=== PATIENT | male | born 1965 | race Caucasian/White ===

== ENCOUNTER 2020-02-23 12:29 | Outpatient (CLI) | payer OTHER, SELFPAY ==
--- NOTE | ~2020-02-23 | XR_ITS ---
EXAMINATION: XR lg joint inject/asp w image DATE: 02/23/2020 13:24 INDICATION: Unilateral primary osteoarthritis of the left hip presenting with left hip pain TECHNIQUE: A time-out was performed to verify the patient's name, date of , and procedure to b e performed. The procedure including the risks, benefits, and alternatives was discussed with the pat ient. Risks discussed included bleeding and infection. The patient understood the risks and agreed to proceed. The skin overlying the left hip joint was prepped and draped in usual sterile fashion. An esthetic was administered with 1% lidocaine subcutaneously. A 22 G needle was advanced under fluoros copic guidance into the joint. Injection of 0.6 mL of Omnipaque 240 confirmed intra-articular positi on of the needle. Subsequently, injectate consisting of 7 mL of a 5:2 mixture of 1% lidocaine, 10 mg /mL Kenalog for a total dosage of 20 mg Kenalog was instilled. Washout of contrast was seen confirmin g intra-articular administration. The needle was removed and the entry site was cleaned and dressed. There were no immediate complications. Fluoroscopy exposure time was 0.1 minutes. The total number o f images was 2. FINDINGS: Real-time fluoroscopy demonstrates the needle in the left hip joint. Patient's pain prior t o procedure:4/10. Patient's pain following the procedure: 0/10. IMPRESSION: 1. Left hip injection of local anesthetic and steroid with decrease in the patient's presenting pain. Reviewed, dictated and finalized at location A. IMPRESSION: 1. Left hip injection of local anesthetic and steroid with decrease in the dl ent's presenting pain.
== END 2020-02-23 12:30 | disposition home or self-care (01) ==
PROVIDERS: PCP Family Medicine Sports Medicine; Visit Provider Orthopaedic Surgery
DX: M16.12 Unilateral primary osteoarthritis, left hip (principal)
CPT/HCPCS: 20610; 77002; J3301; Q9966

== ENCOUNTER → 2022-06-06 08:53 | Outpatient (CLI) | payer OTHER, SELFPAY ==
--- NOTE | ~2022-06-06 | MR_ITS ---
EXAMINATION: MR hip LT wo con DATE: 06/06/2022 09:46 INDICATION: Left hip pain. TECHNIQUE: Magnetic resonance imaging (MRI) of the left hip was performed without intravenous contras t. COMPARISON: Pelvis and left hip radiographs 05/24/2022 FINDINGS: Bones/cartilage: There is lumbar levocurvature and severe lower lumbar spondylosis. No fracture. There is moderate rig ht hip osteoarthritis. There is severe left hip osteoarthritis including full-thickness cartilage los s involving acetabulum and femoral head superiorly. Labrum: There is a tear of the left acetabular labrum. Fluid: There is a small right hip joint effusion. There is a moderate-sized left hip joint effusion. There i s mild bilateral trochanteric bursitis. Soft tissues: The iliopsoas tendons are normal. The gluteus minimus and gluteus medius tendons are normal. There is mild tendinopathy of right hamstring origin. There is a partial tear of left hamstring origin. There is diverticulosis of the colon without evidence of diverticulitis. IMPRESSION: 1. Severe left hip osteoarthritis and moderate right hip osteoarthritis. 2. Moderate-sized left and small right hip joint effusions. Reviewed, dictated and finalized at location B.
== END ==
PROVIDERS: PCP Family Medicine Sports Medicine; Visit Provider Nurse Practitioner
DX: M25.552 Pain in left hip (principal); M16.0 Bilateral primary osteoarthritis of hip; M25.452 Effusion, left hip; M25.451 Effusion, right hip
CPT/HCPCS: 73721

== ENCOUNTER 2023-01-08 07:48 | Outpatient (CLI) | payer OTHER, SELFPAY ==
--- NOTE | 2023-01-08 08:34 | ECG_ITS ---
Measurements Intervals [place] Rate: 60 P: 5 OK: 192 QRS: -30 QRSD: 99 T: 22 QT: 407 QTc: 407 Interpretive Statements SINUS RHYTHM VOLTAGE CRITERIA FOR LVH POOR R WAVE PROGRESSION, ANTERIOR LEADS BASELINE ARTIFACT- I, II, III, AVR, AVL, AVF, V1-V6 BORDERLINE ECG NO PREVIOUS ECG AVAILABLE FOR COMPARISON Electronically Signed On 01-08-2023 9:36:38 CDT by Nicholas Padilla D.O.
[2023-01-08 09:06] LABS: Basophils Percent Auto 0.4 % (0.2-1.2); Eosinophils Absolute Auto 0.1 K/mm3 (0-0.3); Eosinophils Percent Auto 1.2 % (0-4.4); Hematocrit 45.4 % (42.0-52.0); Hemoglobin 15.4 g/dL (14.0-18.0); Immature Granulocyte Absolute 0.05 K/mm3 (0.00-0.031); Immature Granulocyte Percent A 0.5 % (0-0.5); Lymphocytes Absolute Auto 1.38 K/mm3 (0.9-3.2); Lymphocytes Percent Auto 14.7 % (18.3-44.2); Mean Corpuscular HGB Conc 33.9 g/dl (32-36); Mean Corpuscular Volume 91.5 fl (80-100); Mean Platelet Volume 9.6 fl (7.4-10.4); Monocytes Percent Auto 10.1 % (2.6-8.5); Neutrophils Absolute Auto 6.9 K/mm3 (1.3-6.7); Neutrophils Percent Auto 73.1 % (45.5-73.1); Platelet Count Result 231 k/mm3 (150-375); Red Blood Count 4.96 M/mm3 (4.6-6.20); Red Cell Distribution Width 12.2 % (11.5-14.5); White Blood Count 9.4 K/mm3 (4.5-10.0)
[2023-01-08 09:21] LABS: Albumin Level 4.5 g/dL (3.5-5.1); Estimated Glomerular Filt Rate > 60; Glucose 106 mg/dL (65-110)
[2023-01-08 09:24] LABS: Urine Cotinine NEGATIVE
[2023-01-08 10:26] LABS: Hemoglobin A1C 5.5 % (<5.7)
== END 2023-01-08 07:49 | disposition home or self-care (01) ==
PROVIDERS: PCP Family Medicine Sports Medicine; Visit Provider Orthopaedic Surgery
DX: M16.12 Unilateral primary osteoarthritis, left hip (principal); Z01.818 Encounter for other preprocedural examination
CPT/HCPCS: 80307; 82040; 82565; 82947; 83036; 85025; 87081; 93005

== ENCOUNTER 2023-01-29 00:34 | Day surgery (SDC) | payer OTHER, SELFPAY ==
--- NOTE | 2023-01-08 07:47 | PC.NURSE ---
PRE-OP INSTRUCTIONS, PLEASE READ CAREFULLY Report to the Outpatient Waiting Room, entrance under the green pavilion located off [facility], at time _0600_ on date _01/29/23_. Planned Procedure Time: _0730_. PACK A SMALL OVERNIGHT BAG AND LEAVE IN THE CAR ALONG WITH YOUR WALKER Time changes happen often and if your time is changed the preop area will call you the afternoon before. - You and your visitor will be asked to self-screen and do not enter if you have any COVID symptoms. - A mask is optional within the hospital at this time. -VISITING HOURS 8AM-8PM Patients may have clear liquids (water, carbonated beverages, clear teas, apple juice) until 3 hours prior to surgery (0430 AM) with a maximum of 20 ounces. - No food from midnight until time of surgery Take the following medications with a SIP of water the morning of surgery: _N/A_ DO NOT STOP ANY OF YOUR OTHER PRESCRIPTION MEDICATIONS PRIOR TO SURGERY ?EXCEPT THE FOLLOWING Medications to discontinue per physician __N/A__, Date to take last dose Please no make-up, nail monegasque, hairspray, perfume, deodorant, or body powder the day of surgery. No jewelry (including any body piercings) or valuables the day of surgery, leave them at home. Please take a shower or bath the night before, or the morning of, surgery with an antibacterial soap. Wear comfortable, loose fitting clothing. - Jewelry must be removed prior to entering the operating room. Rings and piercings that are not removed may be cut off. - The hospital will not accept responsibility for valuables. - Please leave all valuables, including medications, at home the day of surgery. If you are going home after surgery, a licensed delivery driver assistant must drive you home. - NO public transportation without another adult if you receive anesthesia. - We recommend that an adult stay with you for 24 hours following discharge. - We also recommend that you do not drive, make important decision, drink alcoholic beverages, or take any drugs that were not prescribed by your health care provider for at least 24 hours after your discharge time. Follow any additional instructions given to you from your surgeon. If you or anyone in your household have experienced Covid symptoms in the past week, please notify your surgeon or the nurse liaison at the phone number below for possible testing. Instructions given to _GRZEGORZ_and asked if any additional questions and then verbalized understanding. Patient advised to call surgeon office or pre surgery nurse liaison [phone] if any additional questions.
[2023-01-08 08:02] VITALS: BP 166/80; PULSE 66; RESP 20; TEMP 36.6; O2SAT 100; BMI 36.1
[2023-01-29] VITALS (13 sets, daily range): BP systolic 111–177; BP diastolic 59–96; PULSE 61–84; RESP 11–20; TEMP 36.2–37.3; O2SAT 94–99
--- NOTE | ~2023-01-29 | XR_ITS ---
EXAMINATION: XR hip LT min 2V DATE: 01/29/2023 11:32 INDICATION: Left hip arthroplasty TECHNIQUE: 2 views left hip FINDINGS: There is a left total hip arthroplasty in expected position. Subcutaneous gas with soft ti ssue swelling are consistent with recent surgery. IMPRESSION: 1. Recent left total hip arthroplasty. Reviewed, dictated and finalized at location []
--- NOTE | ~2023-01-29 | XR_ITS ---
EXAMINATION: XR surgery orthopedic DATE: 01/29/2023 7:30 CDT INDICATION: LEFT ANTERIOR APPROACH HIP . TECHNIQUE: 2 fluoroscopic images of the left hip were obtained during left anterior approach hip repl acement performed by the surgeon. I was not present in the operating room. Fluoroscopy exposure time was 19.8 seconds. Air Kerma 6.35 mGy. DAP 0.44246 mGym2. COMPARISON: None FINDINGS: Left hip arthroplasty components, in near-anatomic alignment. IMPRESSION: Fluoroscopic documentation of left anterior approach hip arthroplasty. Please refer to the operative note for complete procedural details . Reviewed, dictated and finalized at location K. IMPRESSION: Fluoroscopic documentation of left anterior approach hip arthroplasty. Please r efer to the operative note for complete procedural details .
--- NOTE | 2023-01-29 06:29 | WPDANESEPPF ---
Anes - Initial Pre Proc Eval Procedure: Operation Date: 01/29/23 07:30 Proposed Procedures p Left Total Hip Arthroplasty, Anterior Approach - Deonte Suggs MD Date/Time: 01/29/23 06:29 Surgeon: Deonte Suggs MD Pre Op Diagnosis: OA left hip Patient Data Age: 57 Gender: M Height: 1.83 m Weight: 120.7 kg Last Vital Signs Temp 36.5 C 01/29/23 06:15 Pulse 69 01/29/23 06:15 Resp 18 01/29/23 06:15 BP 177/87 H 01/29/23 06:15 Pulse Ox 97 01/29/23 06:15 O2 Del Method Room Air 01/29/23 06:15 Allergies Allergy/AdvReac Type Severity Reaction Status Date / Time No Known Allergies Allergy Verified 01/29/23 06:40 Home Medications Medication Instructions Recorded Confirmed Type indomethacin 50 mg capsule 50 mg PO TID PRN 01/18/23 01/18/23 History mecobalamin (vitamin B12) 10,000 mcg IM .q 5days 01/18/23 01/18/23 History mcg solution for injection rivaroxaban 10 mg tablet (Xarelto) 10 mg PO DAILY PE prophylaxis s/p 01/18/23 01/18/23 Rx surgery #14 tabs Patient hx anesthesia problems: none Family hx anesthesia problems: none Results Review: All pre-operative results and documents have been reviewed as part of the pre-operative evaluation. [facility] Past Medical History Medical History Arthritis, lumbar spine History of gout Osteoarthritis of left hip Surgical History Surgical History History of appendectomy History of cholecystectomy History of nasal surgery History of tonsillectomy Family History Family History Father Heart disease Social History Social History Smoking status: Never smoker Second hand tobacco smoke exposure: No Additional smoking assessment comments: PT DENIES ALL FORMS OF TOBACCO USE Alcohol intake: current Drinks per week: 10 Alcohol use details: Moderate Substance use: never Substance use type: does not use Lack of Transportation: No Lack of Food: Never True Current Housing: I Have Housing Concerned About Future Housing: No Difficulty Paying Gas/Electric Bills: No Difficulty Paying for Meds: No Currently Unemployed: No Education: High School Diploma/GED Difficulty w/ Childcare or Family Care: No Living arrangements: with family Additional living arrangements comments: -[place] Occupation/Education: occupation Additional occupation/education comments: Self Employed- [employer] Spiritual care concerns: No Anes - Eval Final PreProcedure Day of Procedure 01/29/23 06:29 Patient weight: obese Heart: regular rate and rhythm Lungs: clear to auscultation Airway: Mallampati scale class II Neurological: alert and oriented Last oral intake: >/= 8 hours ASA classification: II Emergent: no Anesthetic plan: proceed Anesthesia type and monitoring: general ETT and standard monitoring Results Review: All pre-operative results and documents have been reviewed as part of the pre-operative evaluation. Informed Consent: The patient's anesthetic plan and its attendant risks and benefits were discussed with the patient/family/POA. Questions were solicited and answers provided to the satisfaction of the patient/family/POA.
[2023-01-29] MEDS: LACTATED RINGERS 1,000 ML 30 ML IV CONT ×2 (06:30→11:15)
[2023-01-29] MEDS: TRANEXAMIC ACID 1,000MG/ISO100 1,000 MG/100 ML BAG 200 MG IVPB (06:30)
[2023-01-29] MEDS: ACETAMINOPHEN 500 MG TABLET 1000 MG PO (06:38)
--- NOTE | 2023-01-29 07:09 | WPDHPUPDATE1 ---
History and Physical Update Update Date/Time: 01/29/23 07:09 History and Physical has been reviewed, including an updated exam of the patient. There are NO changes in the patient's condition. Risks, benefits, and alternatives have been discussed and questions answered. Patient agrees to proceed with procedure.
[2023-01-29] MEDS: ceFAZolin 3 GM/D5W 100 ML 100 ML IVPB (07:38)
--- NOTE | 2023-01-29 11:12 | P.OP_ITS ---
Procedure Note - Detailed Date of Procedure 01/29/23 Pre-op Diagnosis OA left hip Post-op Diagnosis Same Procedure Performed left total hip replacement - anterior approach Surgeon Deonte Suggs MD [facility] [employer] [facility] Anesthesia General Description of Procedure The patient was identified, proper side identified, and then taken to the operating room. After a general anesthetic was administered, he was then transferred over to the [place] table positioning supine in the usual manner for an anterior hip procedure. Positioning was assessed fluoroscopically after which the left hip and thigh was prepped and draped in the usual sterile fashion. 10 cc of the arthroplasty solution was injected into the subcutaneous tissue over the TFL muscle belly. Longitudinal incision was made over the muscle belly. Subcutaneous tissue was sharply dissected down to the TFL fascia which was inci sed in line with the fibers the TFL. The TFL was retracted laterally and the rectus femoris medially. The rectus fascia was divided. The branches of the anterior femoral circumflex artery were identified and cauterized allowing for access to the hip capsule. Pericapsular fatty tissue was removed. The capsule was divided in an inverted T-fashion. The neck cut was made one fingerbreadth above the level of the lesser trochanter. Head fragment was removed and the acetabulum cleared of debris. Acetabulum was sequentially reamed under fluoroscopic visualization up to 58 mm. A size 58 cup was inserted under fluoroscopic visualization in approximately 40? of abduction and 15? of anteversion following the patient's anatomy. The liner for the size 36 head was placed. The femur was then delivered up into the wound with the appropriate releases. The proximal femur was prepared for the size 14 stem and a trial reduction was undertaken. Overall alignment was assessed fluoroscopically in the AP and lateral views noting it to be satisfactory. Trial components were removed. The wound was irrigated with pulsatile lavage. The real size 14 tper fill stem was then seated. This construct with a size 36, standard head gave excellent sabianist of leg lengths and stability so the real size 36 standard ceramic head was attached to the neck of the femoral component after it had been cleaned and dried. Hip was again reduced and stability assessed, and it was noted to be stable. After final lavage of the wound, the periarticular tissues were injected with an additional 50 cc of the arthroplasty solution. TFL fascia was reapproximated with 0 looped PDS suture, the subcu with 0 looped PDS in the deeper layers and 2-0 strata fix subcuticular stitch. Tissue adhesive was used for the skin. Sterile dressing was applied. He tolerated the procedure well. He was transferred back to a bed and taken to recovery area in stable condition. There were no known intraoperative complications. Estimated blood loss was 600 cc; he received 250 back via Cell Saver. He received perioperative antibiotics. Estimated Blood Loss 600 ( 250 cell Saver returned) Drains No Packing No Pathology None sent Complications No immediate complications Condition Stable Disposition PACU [facility] Billing Surgery - Charge Forward: Surgery Billing ([id number]; [id number] for intraoperative fluoro use)
[2023-01-29] MEDS: fentaNYL CITRATE INJ (*CRX) 100 MCG/2 ML VIAL 25 MCG IV PUSH ×4 (11:31→11:54)
--- NOTE | 2023-01-29 11:38 | SUR.PHASEI ---
1123 xrays right hip done
--- NOTE | 2023-01-29 13:04 | ADMGEN ---
This patient, Ozzie Lake, was admitted to [facility] Surg Room 310-01. Patient/family oriented to hospital policies and general routines including ID bracelet, bed and alarms, visiting hours, pain management, procedures, bathroom and other care routines, personal items, smoking policy, room service/diet, and visiting hours. Information on how to activate the Rapid Response Team has been discussed. Patient/Family are encouraged to report perceived risks to care and to ask questions if they do not understand what they are told or what they should do.
[2023-01-29] MEDS: KETOROLAC 15 MG/ML VIAL (*BKC) IV PUSH ×2 (13:10→23:59)
[2023-01-29] MEDS: oxyCODONE/ACETAMINOPHEN (*CRX) 5-325 MG TABLET 1 TABLET PO ×4 (13:14→23:59)
--- NOTE | 2023-01-29 16:32 | PCPTNOTE ---
On 01/29/23, the student, [Judith Ramos], provided care and completed [address] hospital documentation on this patient. I have reviewed the student's documentation and agree with the findings.
[2023-01-29] MEDS: SENNA/DOCUSATE SODIUM TABLET 2 TAB PO (16:33)
[2023-01-29] MEDS: ceFAZolin 2 GM/D5W 50 ML 2 GM/50 ML BAG IVPB ×2 (16:33→23:59)
[2023-01-29] MEDS: FAMOTIDINE 20 MG TABLET PO (20:17)
[2023-01-30 00:53] VITALS: BP 125/64; PULSE 77; RESP 14; TEMP 36.5; O2SAT 93
[2023-01-30 05:07] VITALS: BP 122/64; PULSE 63; RESP 14; TEMP 36.3; O2SAT 99
[2023-01-30] MEDS: oxyCODONE/ACETAMINOPHEN (*CRX) 5-325 MG TABLET 1 TABLET PO ×3 (05:34→12:50)
[2023-01-30] MEDS: KETOROLAC 15 MG/ML VIAL (*BKC) IV PUSH (06:12)
[2023-01-30 06:31] LABS: Basophils Percent Auto 0.2 % (0.2-1.2); Eosinophils Percent Auto 0.1 % (0-4.4); Hematocrit 37.8 % (42.0-52.0); Hemoglobin 12.4 g/dL (14.0-18.0); Immature Granulocyte Absolute 0.08 K/mm3 (0.00-0.031); Immature Granulocyte Percent A 0.5 % (0-0.5); Lymphocytes Absolute Auto 1.58 K/mm3 (0.9-3.2); Lymphocytes Percent Auto 9.7 % (18.3-44.2); Mean Corpuscular HGB Conc 32.8 g/dl (32-36); Mean Corpuscular Hemoglobin 30.6 pg (26-34); Mean Corpuscular Volume 93.3 fl (80-100); Mean Platelet Volume 10.3 fl (7.4-10.4); Monocytes Absolute Auto 1.8 K/mm3 (0.1-0.6); Monocytes Percent Auto 11.1 % (2.6-8.5); Neutrophils Absolute Auto 12.8 K/mm3 (1.3-6.7); Neutrophils Percent Auto 78.4 % (45.5-73.1); Platelet Count Result 205 k/mm3 (150-375); Red Blood Count 4.05 M/mm3 (4.6-6.20); Red Cell Distribution Width 12.2 % (11.5-14.5); White Blood Count 16.4 K/mm3 (4.5-10.0)
[2023-01-30 07:38] VITALS: O2SAT 91
--- NOTE | 2023-01-30 07:38 | PM.DS ---
DS: Admitting Diagnosis Discharge Date January 30, 2023 Admitting Diagnosis Status post left total hip replacement through an anterior approach DS: Discharge Diagnosis Discharge Diagnosis (1) History of total left hip replacement: Code(s): Z96.642 - Presence of left artificial hip joint Status: Resolved Plan Patient will be discharged home after his therapy today. Follow-up will be with me in approximately two weeks in the office. He was instructed to call with any questions prior to follow-up. Instructions reviewed with him in detail. DS: Summary Hospital Course Reason for hospitalization: Observation following outpatient procedure. Hospital Course: Following the patient's left total hip replacement through an anterior approach on January 29, 2023 he was admitted for observation pain control as well as to initiate therapy. He did very well is being discharged home postop day one. Follow-up will be in the office in two weeks. Status at Discharge Functional status at discharge: uses cane/walker Overall status at discharge: patient is not back to baseline Time Spent with Patient Time attestation: Total time spent providing and/or coordinating discharge services: Exam Const: General: cooperative, no acute distress and alert Nutritional Appearance: other Orientation/consciousness: patient oriented x3 Limitations: no limitations HENMT: Head: normal to inspection Chest: Chest palpation & inspection: normal inspection of the chest Resp: Effort & Inspection: normal respiratory effort and able to speak in complete sentences GI: Inspection: other Neuro: General: patient oriented x3 Cognition (Neuro): normal cognition Speech: normal speech Gait exam (Neuro): Other gait observations present (Walking very well using a walker) Extrem: General: normal to inspection and other Other: Exam of left hip shows dry incision with very little swelling and bruising. Neurovascular status unremarkable left upper extremity. Calves negative. Psych: Appearance: grossly normal Mental Status: mental status grossly normal Radiology Reports: Comments: EXAMINATION: XR hip LT min 2V DATE: 01/29/2023 11:32 INDICATION: Left hip arthroplasty TECHNIQUE: 2 views left hip FINDINGS: There is a left total hip arthroplasty in expected position.? Subcutaneous gas with soft tissue swelling are consistent with recent surgery. IMPRESSION: 1. Recent left total hip arthroplasty. Reviewed, dictated and finalized at location [] DS: Data Data Completed and Pending Labs on day of discharge: Labs from last 24 hours 01/30/23 01/29/23 05:48 06:19 WBC 16.4 H RBC 4.05 L Hgb 12.4 L D Hct 37.8 L MCV 93.3 MCH 30.6 MCHC 32.8 RDW 12.2 Plt Count 205 MPV 10.3 Immature Gran % (Auto) 0.5 Neut % (Auto) 78.4 H Lymph % (Auto) 9.7 L Woodruff % (Auto) 11.1 H Eos % (Auto) 0.1 Baso % (Auto) 0.2 Lymph # (Auto) 1.58 Woodruff # (Auto) 1.8 H Eos # (Auto) 0.0 Baso # (Auto) 0.0 Abs Immat Gran (auto) 0.08 H Absolute Neuts (auto) 12.8 H Absolute Nucleated RBC 0.0 Nucleated RBC % 0.0 Antibody Screen Negative Discharge Plan Discharge Patient Disposition: Home, Self-Care Discharge Instructions: 3 times daily for 20 minutes each time, reclining in bed with ice packs over the incision and a pillow underneath the calf of the affected leg, not under the knee. Your wound is glued so it is okay to remove the dressing, get into the shower and get the wound wet in two days. Be sure to read through all the information that came from a my office and the hospital. Most of the answers you will need can be found that material. Call the office with any questions that you cannot find answers to, or concerns you may have. After the Xarelto is completed, start taking one coated 325
[2023-01-30 08:00] VITALS: BP 156/78; PULSE 76; RESP 16; TEMP 36.5; O2SAT 97
[2023-01-30] MEDS: ceFAZolin 2 GM/D5W 50 ML 2 GM/50 ML BAG IVPB (08:44)
[2023-01-30] MEDS: oxyCODONE HCL (*CRX) 5 MG TAB IR PO ×2 (09:15→12:49)
[2023-01-30] MEDS: SENNA/DOCUSATE SODIUM TABLET 2 TAB PO (09:16)
[2023-01-30 11:36] VITALS: BP 127/69; PULSE 66; RESP 16; TEMP 36.4; O2SAT 94
== END 2023-01-30 13:00 | disposition home or self-care (01) ==
LOC: ANHSURGERY 11:06 → ANH3MEDSUR 12:18
PROVIDERS: PCP Family Medicine Sports Medicine; Visit Provider Orthopaedic Surgery
PROC: (CPT 27130; principal; 2023-01-29 07:30)
DX: M16.12 Unilateral primary osteoarthritis, left hip (principal); E66.9 Obesity, unspecified; Z68.36 Body mass index [BMI] 36.0-36.9, adult
CPT/HCPCS: 27130; 36415; 73502; 80307; 82040; 82565; 82947; 83036; 85025; 86850; 86900; 86901; 87081; 93005; 97110; 97116; 97161; 97165; 97530; 97535; 99199; A9270; C1776; J0171; J0330; J0690; J1100; J1170; J1885; J2250; J2270; J2405; J2704; J2710; J2795; J3010; J7120

== ENCOUNTER 2023-02-28 12:51 | Outpatient (CLI) | payer OTHER, SELFPAY ==
--- NOTE | ~2023-02-28 | US_ITS ---
Duplex Sonography of the left extremity: Indication: Swelling Findings: Sagittal and transverse B-mode images as well as color-flow imaging were performed on the l eft femoral and popliteal veins. B-mode examination was done without and with compression in the tra nsverse plane. There is good visualization of the common femoral, proximal profunda femoral, superfi cial femoral, greater saphenous, and popliteal veins. Normal flow was seen on color-flow imaging. No rmal compressibility was demonstrated. Visualized left calf veins are also patent. Impression: No evidence of deep vein thrombosis involving the left lower extremity. Reviewed, dictated and finalized at location M. Impression: No evidence of deep vein thrombosis involving the left lower extremity.
== END 2023-02-28 12:52 | disposition home or self-care (01) ==
PROVIDERS: PCP Family Medicine Sports Medicine; Visit Provider Orthopaedic Surgery
DX: R22.42 Localized swelling, mass and lump, left lower limb (principal); Z96.642 Presence of left artificial hip joint
CPT/HCPCS: 93971